=== PATIENT | female | born 1950 | race Hispanic/Latino ===

== ENCOUNTER → 2023-12-28 | Outpatient (CLI) | payer MEDICARE ==
--- NOTE | 2023-12-29 08:54 | HMCSR ---
APPROVED REPORT EXAM: Two-dimensional and M-mode echocardiogram with Doppler and color Doppler. 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 2D Dimensions RVDd3.2 cmLVEF(%)59.6 (>50%)LVED Vol(simp.)77.0 mL IVSd0.8 (0.7-1.1cm)FS(%)32 %LVES Vol(simp.)32.0 mL LVDd4.4 (3.8-5.6cm)LA (2D)3.5 (1.6-4.0cm)LVEF(%, simp.)58 % PWd0.8 (0.7-1.1cm)Ao Root(2D)3.0 (2.0-3.7cm)LA ESV INDEX (BP)34.37 mL/m2 LVDs3.0 (2.5-4.0cm)LVOT diam1.9 (1.8-2.4cm) IVC diam1.2 cm Aortic Valve AoV Vmax1.2 m/Flavia Peak GR5.3 mmHgLVOT Vmax0.9 m/s AoV VTI0.3 mAo Mean GR2.5 mmHgLVOT VTI0.23 m SUGAR (VMAX)2.4 cm2AVA (VTI) 2.4 cm2 Mitral Valve MV E Vmax71.6 cm/sDECEL Vifu955 ms MV A Vmax88.1 cm/s E/A ratio0.8 MR Max PG123 mmHg TDI E/E' Lwgeue23.3E/E' Ietqkxl12.1 Pulmonary Valve PV Vmax0.7 m/sPV VTI0.18 mPV Mean GR2 mmHg PV Peak GR2.2 mmHgPI End Rosangela. Raman 1.4 cm/s Tricuspid Valve RAP (EST) 3 mmHg Left Ventricle The left ventricle structure and function is normal. There is normal LV segmental wall motion. There is normal left ventricular wall thickness. LVEF is 55-60%. Grade 1 diastolic dysfunction Right Ventricle The right ventricle is normal size. The right ventricular systolic function is normal. Atria The left atrium is mildly dilated. The right atrium size is normal. Aortic Valve Aortic valve is trileaflet. Aortic valve leaflets are sclerotic but open well. No aortic regurgitatio n is present. There is no aortic valvular stenosis. Mitral Valve The mitral valve is mildly thickened. Mitral regurgitation is trace. There is no mitral valve stenosi s. Tricuspid Valve The tricuspid valve leaflets appear normal. There is trace tricuspid regurgitation. Pulmonic Valve Pulmonic valve is not well visualized. There is mild valvular regurgitation. Great Vessels The aortic root is normal in size. The IVC is normal in size and collapses >50% with inspiration. Pericardium No pericardial effusion. Conclusion LVEF is 55-60%. Grade 1 diastolic dysfunction Mitral regurgitation is trace. There is mild valvular regurgitation.
== END | disposition home or self-care (01) ==
LOC: SHCH 08:00
PROVIDERS: ATTEND Internal Medicine Cardiovascular Disease
DX: I08.8 Other rheumatic multiple valve diseases (principal); I25.10 Atherosclerotic heart disease of native coronary artery without angina pectoris
CPT/HCPCS: 93306